=== PATIENT | male | born 2000 | race Caucasian/White ===

== ENCOUNTER → 2021-01-20 12:16 | Outpatient (CLI) | payer OTHER, SELFPAY ==
[2021-01-20 12:34] LABS: Bacteria 0 SEEN /hpf (None Seen); Mucous, Urine 0 SEEN /hpf (<or=2+); Red Blood Cells-Urine 0 SEEN /hpf (0-5); White Blood Cells 0 SEEN /hpf (0-5)
[2021-01-20 13:36] LABS: Color, Urine Yellow (Yellow); Glucose, Dipstick Normal (Normal); Ketone-Dipstick Negative (Negative); Leukocyte Esterase-Dipstick Negative /ul (Negative); Nitrite-Dipstick Negative (Negative); Occult Blood-Urine Negative /ul (Negative); Protein-Dipstick 30 mg/dl (Negative); Specific Gravity, Urine 1.025 (1.002-1.030); Urine Bilirubin Dipstick Negative (Negative); Urine Clarity Sl. Cloudy (Clear); Urine Urobilinogen Normal (Normal)
[2021-01-20 13:43] LABS: Calcium Oxalate Crystals Ur 1+ /hpf (<or=2+); Squamous Epithelial Cells - UA 0-5 SEEN /hpf (0-5)
== END ==
PROVIDERS: Referring Provider Anesthesiology; Visit Provider Anesthesiology
DX: N39.0 Urinary tract infection, site not specified (principal)
CPT/HCPCS: 81001

== ENCOUNTER → 2025-06-03 | Outpatient (CLI) | payer OTHER, SELFPAY ==
--- NOTE | 2025-06-03 10:18 | RAD_ITS ---
PROCEDURE: WRIST MIN 3 VIEWS 06/03/2025 REASON FOR EXAM: PAIN AFTER A FALL TECHNIQUE: Four views Laterality: Left COMPARISON: None FINDINGS: No fracture or suspicious osseous lesion, subtle subchondral lucencies in the scaphoid suggest either previous trauma or they are likely benign bone cysts. Joint spaces well-preserved There is subtle positive ulnar variance which narrows the space between the distal ulna and the triquetrum and pisiform and could cause pain in the right clinical setting RAD/Wrist min 3 Views IMPRESSION: No acute abnormalities Positive ulnar variance Reading Location: [id number]
--- NOTE | 2025-06-03 10:18 | RAD_ITS ---
PROCEDURE: HAND MIN 3 VIEWS 06/03/2025 REASON FOR EXAM: PAIN AFTER A FALL TECHNIQUE: HAND MIN 3 VIEWS COMPARISON: None. FINDINGS: Suspect scaphoid fracture. The remaining bones of the hand and wrist appear unremarkable. There are no joint space abnormalities. RAD/Hand Min 3 Views IMPRESSION: Fracture of the distal pole of the scaphoid. Reading Location: [place] [id number]
== END | disposition home or self-care (01) ==
LOC: MTRAD 10:17
PROVIDERS: Referring Provider Orthopaedic Surgery Sports Medicine; Visit Provider Orthopaedic Surgery Sports Medicine
DX: M79.642 Pain in left hand (principal)
CPT/HCPCS: 73110; 73130